=== PATIENT | female | born 1940 | race African-American/Black ===

== ENCOUNTER 2024-09-27 06:13 | Emergency (ER) | payer OTHER ==
[~2024-09-27] VITALS: Ht 160 cm; Wt 68.0 kg
[2024-09-27 06:15] VITALS: O2SAT 99
[2024-09-27 08:50] LABS: BASOPHILS % 0.3 % (0.0-2.0); EOSINOPHILS % 0.7 % (0.0-5.0); HEMATOCRIT. 33.6 % (36.0-48.0); LYMPHOCYTES % 17.4 % (20.0-50.0); MEAN CORPUSCULAR HEMOGLOBIN 31.2 pg (28.0-32.0); MEAN CORPUSCULAR HGB CONC 32.6 g/dL (31.0-37.0); MEAN CORPUSCULAR VOLUME 95.6 fL (81.0-99.0); MEAN PLATELET VOLUME 8.6 fl (7.4-10.4); MONOCYTES % 7.9 % (2.0-8.0); NEUTROPHILS % 73.7 % (40.0-76.0); PLATELET 234 x1000/uL (130-400); RED BLOOD CELL COUNT 3.52 mill/uL (4.2-5.4); RED CELL DISTRIBUTION WIDTH 15.6 % (11.6-14.6); WHITE BLOOD COUNT 12.1 x1000/uL (4.5-11.0)
[2024-09-27 08:57] LABS: POTASSIUM 3.5 mEq/L (3.5-5.1)
[2024-09-27 08:58] LABS: CALCIUM 9.2 mg/dL (8.7-10.4)
[2024-09-27 09:03] LABS: CREATININE 1.1 mg/dL (0.6-1.0)
[2024-09-27 09:04] LABS: INR 0.9; PROTHROMBIN TIME 10.5 sec (9.6-11.0)
[2024-09-27 09:53] VITALS: BP 146/67; PULSE 69; RESP 16; TEMP 36.83628; O2SAT 99
== END 2024-09-27 09:54 | disposition short-term general hospital (02) ==
LOC: ER 06:13
DX: S32.9XXA Fracture of unspecified parts of lumbosacral spine and pelvis, initial encounter for closed fracture (principal); W01.0XXA Fall on same level from slipping, tripping and stumbling without subsequent striking against object, initial encounter; Y93.89 Activity, other specified; Y92.89 Other specified places as the place of occurrence of the external cause; Y99.8 Other external cause status
CPT/HCPCS: 36415; 72170; 72192; 80048; 85025; 86850; 86900; 99285